=== PATIENT | female | born 1995 | race Caucasian/White ===

== ENCOUNTER 2017-09-14 05:46 | Emergency (ER) | payer OTHER ==
[~2017-09-14] VITALS: Ht 162.6 cm; Wt 100.0 kg
[2017-09-14 06:48] VITALS: BP 150/81
== END 2017-09-14 07:57 | disposition home or self-care (01) ==
LOC: EDBD 05:48 → EMS 05:48
DX: S83.005A Unspecified dislocation of left patella, initial encounter (principal); S83.91XA Sprain of unspecified site of right knee, initial encounter; Z91.013 Allergy to seafood; W01.0XXA Fall on same level from slipping, tripping and stumbling without subsequent striking against object, initial encounter; Y93.89 Activity, other specified; Y92.89 Other specified places as the place of occurrence of the external cause; Y99.8 Other external cause status
CPT/HCPCS: 29530; 99284

== ENCOUNTER 2018-07-12 17:20 | Emergency (ER) | payer BC, OTHER ==
[~2018-07-12] VITALS: Ht 167.6 cm; Wt 95.0 kg
[2018-07-12 17:27] VITALS: BP 140/87
[2018-07-12] MEDS ORDERED: LEVO1TAB69 PO (17:31)
[2018-07-12] MEDS ORDERED: IBUPROFEN 600 MG TABLET PO ONE (17:45)
[2018-07-12] MEDS ORDERED: DEXAMETHASONE SOD PHOS 4 MG/ML 5 ML VIAL IM ONE (17:45)
== END 2018-07-12 19:05 | disposition home or self-care (01) ==
LOC: EMS 17:22
DX: J02.8 Acute pharyngitis due to other specified organisms (principal); B97.89 Other viral agents as the cause of diseases classified elsewhere; Z91.013 Allergy to seafood
CPT/HCPCS: 87430; 96372; 99283; J1100

== ENCOUNTER 2018-07-14 16:02 | Emergency (ER) | payer BC, OTHER ==
[~2018-07-14] VITALS: Ht 167.6 cm; Wt 95.0 kg
[~2018-07-14 16:02] MED LIST: LEVO1TAB69 PO
[2018-07-14] MEDS ORDERED: LIDOCAINE 2% VISCOUS 15 ML SOLUTION UDCUP PO ONE (17:15)
[2018-07-14] MEDS ORDERED: CEPHALEXIN MONOHYDRATE 500 MG CAPSULE PO ONE (17:15)
[2018-07-14] MEDS ORDERED: ACETAMINOPHEN 500 MG TABLET PO ONE (17:15)
[2018-07-14] MEDS ORDERED: LIDOCAINE/PF 1% 2 ML VIAL IM ONE (17:45)
[2018-07-14] MEDS ORDERED: CefTRIAXone SODIUM 1 GM/VIAL IM ONE (17:45)
[2018-07-14 18:23] VITALS: BP 123/71
== END 2018-07-14 18:33 | disposition home or self-care (01) ==
LOC: EMS 16:03
DX: J03.90 Acute tonsillitis, unspecified (principal); Z91.013 Allergy to seafood
CPT/HCPCS: 96372; 99283; J0696; J3490